=== PATIENT | female | born 1980 | race American Indian/Alaskan Native ===

== ENCOUNTER 2017-04-27 08:56 | Emergency (ER) | payer OTHER, MEDICAID ==
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
--- NOTE | 2017-04-27 10:12 | XRay Report ---
LEFT SHOULDER: History: Injury. Routine views demonstrate normal bony and soft tissue structures with normal joint alignment of the shoulder. IMPRESSION: Normal study.
[2017-04-27] MEDS ORDERED: MOTRIN PO ONE (11:54)
--- NOTE | 2017-04-27 12:08 | XRay Report ---
CHEST 2 VIEWS INDICATION: Left chest wall pain. COMPARISON: 04/05/2015. FINDINGS: PA and lateral chest radiographs demonstrate normal cardiomediastinal silhouette. Clear lungs. Intact bones. CONCLUSION: No acute disease in the chest. Thank you for the opportunity to participate in this patient's care.
[2017-04-27 12:45] LABS: Basophils % (Auto) 0.6 % (0.0-1.8); Eosinophils % (Auto) 1.7 % (0.0-4.3); Hematocrit 39.7 % (30.3-42.9); Hemoglobin 12.8 gm/dl (10.1-14.3); Mean Corpuscular HGB Conc 32 % (30-34); Mean Corpuscular Hemoglobin 30 pg (28-32); Mean Corpuscular Volume 92 fl (79-97); Platelet Count 231 K/mm3 (140-440); Red Blood Count 4.33 M/mm3 (3.65-5.03); Red Cell Distribution Width 13.9 % (13.2-15.2); White Blood Count 7.4 K/mm3 (4.5-11.0)
[2017-04-27 13:01] LABS: Anion Gap 19 mmol/L; BUN/Creatinine Ratio 10; Blood Urea Nitrogen 6 mg/dL (7-17); Calcium 9.2 mg/dL (8.4-10.2); Carbon Dioxide 27 mmol/L (22-30); Chloride 102.1 mmol/L (98-107); Glucose 84 mg/dL (65-100); Potassium 4.7 mmol/L (3.6-5.0); Sodium 143 mmol/L (137-145)
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
[2017-04-27 14:42] VITALS: BP 120/82
== END 2017-04-27 14:42 | disposition home or self-care (01) ==
LOC: ED 08:56
DX: R07.89 Other chest pain (principal); M25.512 Pain in left shoulder; V09.29XA Pedestrian injured in traffic accident involving other motor vehicles, initial encounter; Y93.89 Activity, other specified; Y92.89 Other specified places as the place of occurrence of the external cause; Y99.8 Other external cause status
CPT/HCPCS: 36415; 71020; 80048; 84484; 85025; 93005; 93010

== ENCOUNTER 2021-08-06 10:48 | Emergency (ER) | payer SELFPAY ==
[2021-08-06 12:47] VITALS: BP 118/74
--- NOTE | 2021-08-06 12:47 | Emergency Department Report ---
ED Female HPI - General Chief complaint: Abdominal Pain Stated complaint: LOW ABDOMINAL PAIN Time Seen by Provider: 08/06/21 12:44 Source: patient Mode of arrival: Ambulatory Limitations: No Limitations - History of Present Illness Initial comments: 41 YO COMES TO ER WITH SUPRAPUBIC PAIN (SHE LATER ADMITS FOR SEVERAL YEARS) RECENTLY TX WITH MACROBID FOR UTI- WHILE IN [place] LAST WEEK NO VAG DC OR BLEEDING NO BACK PAIN OR ABD PAIN NO N/V/D NO DYSURIA SEXUALLY ACTIVE WITH 1 MALE NOT CONCERNED FOR STI AMBULATORY AN NON TOXIC ON TIRAGE MD Complaint: other -: Gradual, days(s) Location: suprapubic Radiation: non-radiating Severity: mild Consistency: intermittent Improves with: none Are you Now?: No Associated Symptoms: denies other symptoms. denies: vaginal discharge, vaginal bleeding, abdominal pain, nausea/vomiting, fever/chills, headaches, loss of appetite, dysuria, hematuria, rash, seizure, shortness of breath, syncope, weakness - Related Data Sexually active: Yes Para: 5 Home Medications Medication Instructions Recorded Confirmed Last Taken Albuterol Mdi (or & Nicu Only) 2 puff IH QID PRN 04/05/15 04/05/15 Unknown [ProAir HFA Inhaler] Allergies Allergy/AdvReac Type Severity Reaction Status Date / Time No Known Allergies Allergy Verified 04/05/15 21:34 ED Review of Systems ROS: Stated complaint: LOW ABDOMINAL PAIN Other details as noted in HPI Comment: All other systems reviewed and negative ED Past Medical Hx - Past Medical History Previous Medical History?: Yes Hx Asthma: Yes Additional medical history: Pt states she's never really been told diagnosis; UPSIDE DOWN UTERUS - Surgical History Past Surgical History?: Yes Additional Surgical History: tubaligation, ectopic - Family History Family history: no significant - Social History Smoking Status: Current Every Day Smoker Substance Use Type: None - Medications Home Medications: Home Medications Medication Instructions Recorded Confirmed Last Taken Type Albuterol Mdi (or & Nicu Only) 2 puff IH QID PRN 04/05/15 04/05/15 Unknown History [ProAir HFA Inhaler] ED Physical Exam - General Limitations: No Limitations General appearance: alert, in no apparent distress - Head Head exam: Present: atraumatic, normocephalic - Eye Eye exam: Present: normal appearance - ENT ENT exam: Present: mucous membranes moist - Neck Neck exam: Present: normal inspection - Respiratory Respiratory exam: Present: normal lung sounds bilaterally. Absent: respiratory distress - Cardiovascular Cardiovascular Exam: Present: regular rate, normal rhythm. Absent: systolic murmur, diastolic murmur, rubs, gallop - GI/Abdominal GI/Abdominal exam: Present: soft, normal bowel sounds - Extremities Exam Extremities exam: Present: normal inspection - Back Exam Back exam: Present: normal inspection - Neurological Exam Neurological exam: Present: alert, oriented X3 - Psychiatric Psychiatric exam: Present: normal affect, normal mood - Skin Skin exam: Present: warm, dry, intact, normal color. Absent: rash ED Course Vital Signs 08/06/21 12:44 Temperature 97.8 F Pulse Rate 85 Respiratory 18 Rate Blood Pressure 118/74 [Right] O2 Sat by Pulse 97 Oximetry ED Medical Decision Making - Medical Decision Making Vital Signs 08/06/21 12:44 Temperature 97.8 F Pulse Rate 85 Respiratory 18 Rate Blood Pressure 118/74 [Right] O2 Sat by Pulse 97 Oximetry Lab Results 08/06/21 Range/Units Unknown Urine Color Yellow (Yellow) Urine Turbidity Clear (Clear) Urine pH 5.0 (5.0-7.0) Ur Specific [place] 1.021 (1.003-1.030) Urine Protein <15 mg/dl (Negative) mg/dL Urine Glucose (UA) Neg (Negative) mg/dL Urine Ketones Neg (Negative) mg/dL Urine Blood Sm (Negative) Urine Nitrite Neg (Negative) Urine Bilirubin Neg (Negative) Urine Urobilinogen 4.0 (<2.0) mg/dL Ur Leukocyte Esterase Neg (Negative) Urine WBC (Auto) < 1.0 (0.0-6.0) /HPF Urine RBC (Auto) < 1.0 (0.0-6.0) /HPF U Epithel Cells (Auto) 1.0 (0-13.0) /HPF Urine HCG, Qual Negative (Negative) UA NOTED PREG NEG NO VAG DC LAST OBGYN APPNT 7 YEARS AGO SHE STATES SHE HAS HAD THIS PAIN SINCE THEN AMBULATORY AND IN NAD ON DC DC HOME WITH OBGYN REFERRAL PT VERBALIZES UNDERSTANDING OF THE NEED FOR 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 ED Disposition Clinical Impression: Suprapubic pain Disposition: 01 HOME / SELF CARE / HOMELESS Is pt being admited?: No Does the pt Need Aspirin: No Condition: Stable Instructions: Dysuria, Abdominal Pain (ED) Additional Instructions: safe sex drink a lot of water motrin or tylenol for pain FOLLOW UP WITH OBGYN REFERRAL BELOW Referrals: ISH FRANCIS MD [Staff Physician] - 3-5 Days Time of Disposition: 13:26
[2021-08-06 13:47] LABS: Bilirubin,Urine NEG (Negative); Blood,Urine SM (Negative); Color,Urine Yellow (Yellow); Protein,Urine <15 mg/dL mg/dL (Negative); WBC,Urine < 1.0 /HPF (0.0-6.0)
[2021-08-06 13:50] LABS: HCG Qualitative,Urine Negative (Negative); RBC,Urine < 1.0 /HPF (0.0-6.0)
== END 2021-08-06 14:07 | disposition home or self-care (01) ==
LOC: ED 10:48
DX: R10.30 Lower abdominal pain, unspecified (principal); J45.909 Unspecified asthma, uncomplicated; F17.200 Nicotine dependence, unspecified, uncomplicated; Z98.51 Tubal ligation status; Z98.890 Other specified postprocedural states
CPT/HCPCS: 81001; 81025; 99283